=== PATIENT | male | born 1985 | race Caucasian/White ===

== ENCOUNTER 2022-12-26 09:38 | Emergency (ER) | payer MEDICARE, MEDICAID ==
[~2022-12-26] VITALS: Ht 172.7 cm; Wt 59.2 kg
[2022-12-26 10:28] VITALS: BP 104/65
== END 2022-12-26 12:26 | disposition home or self-care (01) ==
LOC: ER 09:39
DX: S90.02XA Contusion of left ankle, initial encounter (principal); Z88.8 Allergy status to other drugs, medicaments and biological substances; W18.39XA Other fall on same level, initial encounter; Y93.89 Activity, other specified; Y92.89 Other specified places as the place of occurrence of the external cause; Y99.8 Other external cause status
CPT/HCPCS: 73610; 99283; L4360